=== PATIENT | female | born 1995 | race Two or more races ===

== ENCOUNTER 2019-02-09 02:53 | Emergency (ER) | payer BC ==
[~2019-02-09] VITALS: Ht 152.4 cm; Wt 45.4 kg
[2019-02-09] MEDS ORDERED: SUMATRIPTAN SUCCINATE 6 MG/0.5 ML VIAL SQ ONE ×2 (03:09→03:30)
[2019-02-09] MEDS ORDERED: METOCLOPRAMIDE HCL 10 MG/2 ML VIAL ONE (03:09)
[2019-02-09] MEDS ORDERED: METOCLOPRAMIDE HCL 10 MG/2 ML VIAL IV ONE (03:30)
[2019-02-09] MEDS ORDERED: IV NS 0.9% 1,000 ML BAG IV ONE (03:30)
--- NOTE | 2019-02-09 03:40 | NUR ---
JOSÉ MIGUEL. C/O "HAVING HEADACHE FOR AROUND X5 MONTHS. GETTING WORSE TODAY, TOOK 1G OF TYLENOL W/NO RELIEF' -SOB AOX4. -NEURO DEFICITS. VSS AT THIS TIME. PT AMBULATORY
--- NOTE | 2019-02-09 04:23 | NUR ---
patient sleeping in bed. reporting headache to be gone at this time. family at bedside. will continue to monitor.
[2019-02-09 06:20] VITALS: BP 103/68
== END 2019-02-09 06:20 | disposition home or self-care (01) ==
LOC: ER 02:54
DX: R51 Headache (principal); Z88.0 Allergy status to penicillin; Z88.1 Allergy status to other antibiotic agents
CPT/HCPCS: 70450; 96372; 96374; 99284; J2765; J3030; J7030